=== PATIENT | female | born 1965 | race Caucasian/White ===

== ENCOUNTER 2016-04-18 22:25 | Observation (INO) | payer OTHER ==
[~2016-04-18] VITALS: Ht 162.6 cm; Wt 89.8 kg
[~2016-04-18 22:25] MED LIST: ADVAIR; ADVAIR 250/501 DISK IH; ASPIRIN325 MG PO; Advair HFA 115/21 IH; Aspirin PO; BENTYL20 MG PO; BUSPAR7.5 MG PO; CIPRO500 MG PO; CITRATE OF MAG296 ML PO; COLACE100 MG PO; COREG6.25 M1 PO; CRESTOR5 MG PO; Coreg PO; DULCOLAX STOOL100 MG PO; DULCOLAX10 MG PR; Ecotrin PO; FUROSEMIDE40 MG PO; IMDUR60 MG PO; K-DUR10 MEQ PO; KLONOPIN0.5 M1 PO; LASIX20 MG PO; LIPITOR40 MG PO; LISINOPRIL5 MG PO; Lipitor PO; NAPROSYN500 MG PO; NITROGLYCERIN0.4 MG PO; NOHOMEMEDS; NORCO 7.5/321 TABLET PO; PERCOCET 5/31 TABLET PO; PLAVIX75 MG PO; PREDNISONE50 MG PO; PREVACID; PREVACID15 MG PO; PREVACID30 MG PO; PROAIR HFA8.5 GM IH; PROVENTIL17 GM IH; PYRIDIUM200 MG PO; Pravachol PO; Proventil,Ventolin H IH; SERTRALINE HCL50 MG PO; SPIRIVA; SPIRIVA1 INHALATI IH; TYLENOL REGULA325 MG PO; Tylenol Regular Stre PO; VENTOLIN; VENTOLIN HFA18 GM IH; ZESTRIL,PRINIVI10 M1 PO; ZITHROMAX Z-PA250 MG PO; ZOLOFT PO; ZOLOFT100 MG PO; ZOLOFT50 MG PO; Zithromax PO; Zoloft PO; [UNRECOGNIZED DRUG - OTHER]; predniSONE PO
[2016-04-18 22:56] LABS: HEMATOCRIT 41.4 % (36.0-46.0); MCH 29.7 PG (29.0-34.0); MCHC 33.1 G/DL (30.0-36.0); MCV 89.8 FL (83-99); MEAN PLAT.VOLUME 10.9 uM^3 (9.5-12.4); PLATELET COUNT 197 K/uL (156-360); RBC DIS.WIDTH-CV 13.7 % (11.8-14.6); RBC DIS.WIDTH-SD 44.3 % (39-53); RED BLOOD COUNT 4.61 M/uL (3.80-5.20)
[2016-04-18 23:11] LABS: CHLORIDE 105 mEq/L (99-109); POTASSIUM 3.7 mEq/L (3.7-5.4); SODIUM 139 mEq/L (136-147)
[2016-04-18 23:12] LABS: GLUCOSE 107 mg/dL (70-99)
[2016-04-18 23:14] LABS: ANION GAP 9 MEQ/L (2-14)
[2016-04-18 23:16] LABS: GFR ESTIMATE (CALCULATED) > 59 mL/min/
[2016-04-18 23:17] LABS: UREA NITROGEN (BUN) 15 mg/dL (9-23)
[2016-04-18 23:21] LABS: TROP-I INTERPRETATION NEGATIVE; TROPONIN-I < 0.01 ng/mL (0.0-0.30)
[2016-04-19 00:17] LABS: PROTHROMBIN TIME 10.3 (9.2-11.2); PTT 32.6 (25-32)
[2016-04-19 03:37] LABS: TOTAL BILIRUBIN 0.4 mg/dL (0.0-1.0)
[2016-04-19 03:38] LABS: ALKALINE PHOSPHATASE 78 IU/L (3-129)
[2016-04-19 03:40] LABS: DIRECT BILIRUBIN 0.2 mg/dL (0.0-0.3)
[2016-04-19 03:41] LABS: LIPASE 17 U/L (1.0-51.0)
[2016-04-19 03:42] LABS: D-DIMER ELISA 1.33 mg/L FEU (< 0.57)
[2016-04-19 05:47] LABS: TROP-I INTERPRETATION NEGATIVE; TROPONIN-I < 0.01 ng/mL (0.0-0.30)
[2016-04-19 07:18] VITALS: BP 99/52
[2016-04-19 12:19] VITALS: BP 107/52
[2016-04-19 13:01] LABS: TROP-I INTERPRETATION NEGATIVE; TROPONIN-I < 0.01 ng/mL (0.0-0.30)
[2016-04-19] MEDS ORDERED: LEVOFLOXACIN750 MG PO (13:43)
[2016-04-19] MEDS ORDERED: PREDNISONE20 MG PO ×2 (13:43)
[2016-04-19] MEDS ORDERED: PREDNISONE10 MG PO ×2 (13:43→13:52)
== END 2016-04-19 14:54 | disposition home or self-care (01) ==
LOC: EME 22:25 → EDOF 04-19 02:36 → 5WEST 04-19 07:14
PROVIDERS: Hospitalist
DX: J20.9 Acute bronchitis, unspecified (principal); R07.9 Chest pain, unspecified; R91.1 Solitary pulmonary nodule; I25.10 Atherosclerotic heart disease of native coronary artery without angina pectoris; Z95.1 Presence of aortocoronary bypass graft; I25.2 Old myocardial infarction; I25.5 Ischemic cardiomyopathy; Z79.02 Long term (current) use of antithrombotics/antiplatelets; Z79.82 Long term (current) use of aspirin; F17.210 Nicotine dependence, cigarettes, uncomplicated; E66.9 Obesity, unspecified; Z68.31 Body mass index [BMI] 31.0-31.9, adult; I10 Essential (primary) hypertension; Z82.49 Family history of ischemic heart disease and other diseases of the circulatory system; Z88.0 Allergy status to penicillin
CPT/HCPCS: 71020; 71275; 80048; 80076; 83690; 83880; 84484; 85027; 85379; 85610; 85730; 93005; 94640; 99202; 99281; 99285; G0378; J1644; J2930

== ENCOUNTER 2017-04-21 22:01 | Emergency (ER) | payer OTHER ==
[~2017-04-21] VITALS: Ht 162.6 cm; Wt 96.9 kg
[~2017-04-21 22:01] MED LIST changes: +LEVOFLOXACIN750 MG PO; +PREDNISONE10 MG PO; +PREDNISONE20 MG PO
[2017-04-21 22:31] LABS: HEMATOCRIT 40.8 % (36.0-46.0); MCHC 34.3 G/DL (30.0-36.0); MCV 93.2 FL (83-99); PLATELET COUNT 256 K/uL (156-360); RBC DIS.WIDTH-CV 12.3 % (11.8-14.6); RBC DIS.WIDTH-SD 42.3 % (39-53); RED BLOOD COUNT 4.38 M/uL (3.80-5.20); WHITE BLOOD COUNT 11.6 K/uL (4.1-10.2)
[2017-04-21 22:39] LABS: CHLORIDE 104 mEq/L (99-109); POTASSIUM 4.1 mEq/L (3.7-5.4); SODIUM 139 mEq/L (136-147)
[2017-04-21 22:41] LABS: GLUCOSE 109 mg/dL (70-99)
[2017-04-21 22:45] LABS: CREATININE 0.9 mg/dL (0.6-1.3); GFR ESTIMATE (CALCULATED) > 59 mL/min/
[2017-04-21 22:46] LABS: UREA NITROGEN (BUN) 15 mg/dL (9-23)
[2017-04-21 22:51] LABS: TROP-I INTERPRETATION NEGATIVE; TROPONIN-I < 0.01 ng/mL (0.0-0.30)
[2017-04-22] MEDS ORDERED: PREDNISONE20 MG PO (01:24)
[2017-04-22] MEDS ORDERED: PROVENTIL HFA6.7 GM IH (01:24)
[2017-04-22 01:39] VITALS: BP 108/54
== END 2017-04-22 01:42 | disposition home or self-care (01) ==
LOC: EME 22:01
PROVIDERS: Emergency Medicine Emergency Medical Services
DX: R06.00 Dyspnea, unspecified (principal); R07.89 Other chest pain; R05 Cough; J44.9 Chronic obstructive pulmonary disease, unspecified; I10 Essential (primary) hypertension; E78.5 Hyperlipidemia, unspecified; I25.2 Old myocardial infarction; Z95.1 Presence of aortocoronary bypass graft; Z95.5 Presence of coronary angioplasty implant and graft; Z86.73 Personal history of transient ischemic attack (TIA), and cerebral infarction without residual deficits; Z79.02 Long term (current) use of antithrombotics/antiplatelets; Z79.82 Long term (current) use of aspirin; Z72.0 Tobacco use
CPT/HCPCS: 71046; 80048; 83880; 84484; 85027; 93005; 99281; 99285; J7512